=== PATIENT | female | born 1985 | race Caucasian/White ===

== ENCOUNTER 2016-10-31 07:18 | Emergency (ER) | payer MEDICARE, OTHER ==
[2016-10-31] MEDS ORDERED: SODIUM CHLORIDE 0.9% 1,000 ML ONE (08:03)
[2016-10-31 08:11] LABS: AMPHETAMINES/METHAMPHETAMINES NEGATIVE (NEGATIVE); COCAINE NEGATIVE (NEGATIVE); MARIJUANA NEGATIVE (NEGATIVE); METHADONE NEGATIVE (NEGATIVE); OPIATES NEGATIVE (NEGATIVE); TRICYCLIC ANTIDEPRESSANTS NEGATIVE (NEGATIVE)
[2016-10-31 08:18] LABS: ABSOLUTE NEUTROPHIL COUNT 9.5 K/mm3 (1.8-7.7); BASO # 0.1 K/mm3 (0.0-0.2); BASO % 0.4 % (0.2-1.0); HEMATOCRIT 39.8 % (37.0-47.0); HEMOGLOBIN 12.4 gm/l (12.0-16.0); IMM NEUT% 0.2 % (0-1); LYMPH # 3.4 (1.0-4.8); LYMPH % 24.9 % (15-45); MEAN CELL VOLUME 81.7 fl (81.0-99.0); MEAN CORPUSCULAR HEMOGLOBIN 25.5 pg (27.0-31.0); MEAN CORPUSCULAR HGB CONC 31.2 g/dl (33.0-37.0); MEAN PLATELET VOLUME 8.7 fl (7.4-10.4); MONO # 0.6 (0.0-0.8); MONO % 4.4 % (4-12); NEUT % 70.1 % (43-75); PLATELET COUNT 443 K/mm3 (130-400); RED CELL DISTRIBUTION WIDTH 13.8 % (11.5-14.5)
[2016-10-31 12:52] LABS: ALB/GLOB RATIO 1.1 (>1.0); ALBUMIN 4.3 gm/dL (3.5-5.7); ALT/SGPT 14 U/L (7-52); BLOOD UREA NITROGEN 6 mg/dL (7-25); BUN/CREATININE RATIO 9 (6-20); CALCIUM 9.9 mg/dL (8.6-10.3); GLOMERULAR FILTRATION RATE 99 mL/min (60-116)
[2016-10-31 12:54] LABS: ACETAMINOPHEN < 10 ug/ml
== END 2016-10-31 13:13 | disposition home or self-care (01) ==
LOC: ED 07:18
DX: T50.992A Poisoning by other drugs, medicaments and biological substances, intentional self-harm, initial encounter (principal); R53.83 Other fatigue; R00.0 Tachycardia, unspecified; Y92.9 Unspecified place or not applicable
CPT/HCPCS: 80307 ×2; 84703; 85025; 80305; 80053; 99283 ×2; 96360; 96361 ×3; J7030